=== PATIENT | male | born 1995 | race Caucasian/White ===

== ENCOUNTER 2017-08-15 16:57 | Emergency (ER) | payer OTHER ==
[~2017-08-15] VITALS: Ht 188 cm; Wt 82.9 kg
[2017-08-15] MEDS ORDERED: ACETAMINOPHEN 500 MG TABLET ONE (17:32)
[2017-08-15] MEDS ORDERED: ACETAMINOPHEN 500 MG TABLET PO ONE (18:00)
[2017-08-15] MEDS ORDERED: SODIUM CHLORIDE 0.9% 1,000ML IVBOLUS ONE (18:00)
[2017-08-15 18:15] LABS: HEMATOCRIT 49.1 % (39.2-51.8); WHITE BLOOD COUNT 26.2 x10^3/uL (3.4-10)
[2017-08-15 18:21] LABS: BLOOD UREA NITROGEN 12 mg/dL (7-18)
[2017-08-15] MEDS ORDERED: SODIUM CHLORIDE FLUSH 10ML SYR IVF ONE (18:30)
[2017-08-15 18:58] LABS: DIFF TOTAL CELLS COUNTED 100 CELL DIFF
[2017-08-15] MEDS ORDERED: AZITHROMYCIN 500 MG TABLET PO ONE (19:00)
[2017-08-15] MEDS ORDERED: POTASSIUM CHLORIDE 20 MEQ TAB.ER.PRT PO ONE (19:00)
[2017-08-15] MEDS ORDERED: CEFTRIAXONE PMX 1GM/50ML 50 ML IV ONE (19:00)
[2017-08-15 19:01] LABS: VERIFY COUNTS? YES
[2017-08-15] MEDS ORDERED: AZITHROMYCIN 500 MG TABLET ONE (19:11)
[2017-08-15] MEDS ORDERED: CEFTRIAXONE PMX 1GM/50ML 50 ML ONE (19:12)
[2017-08-15] MEDS ORDERED: POTASSIUM CHLORIDE 20 MEQ TAB.ER.PRT ONE (19:13)
[2017-08-15 19:27] VITALS: BP 103/62
== END 2017-08-15 20:03 | disposition home or self-care (01) ==
LOC: ED 19:45
DX: J20.8 Acute bronchitis due to other specified organisms (principal); B96.89 Other specified bacterial agents as the cause of diseases classified elsewhere; E86.0 Dehydration; R91.1 Solitary pulmonary nodule; D72.829 Elevated white blood cell count, unspecified; F17.200 Nicotine dependence, unspecified, uncomplicated
CPT/HCPCS: 36415; 71020; 80048; 82040; 85025; 93005; 96361; 96365; 99285; J0696; J7030